=== PATIENT | female | born 1960 | race Caucasian/White ===

== ENCOUNTER 2016-06-26 10:17 | Day surgery (SDC) | payer BC ==
[~2016-06-26] VITALS: Ht 157.5 cm; Wt 74.5 kg
[2016-06-26 10:52] VITALS: Ht 157.5 cm; Wt 74.5 kg
[2016-06-26] MEDS ORDERED: AMLO-147 PO (11:11)
[2016-06-26] MEDS ORDERED: CITA-104 PO (11:11)
[2016-06-26] MEDS ORDERED: SIMV20TA97 PO (11:11)
[2016-06-26] MEDS ORDERED: CYCL-319 PO (11:11)
[2016-06-26] MEDS ORDERED: NAPR500T8 PO (11:11)
[2016-06-26] MEDS ORDERED: SUMA100T4 PO (11:11)
[2016-06-26] MEDS ORDERED: PANT40TA4 PO (11:11)
[2016-06-26] MEDS ORDERED: IBUP400T22 PO (11:11)
[2016-06-26] MEDS ORDERED: MIRT15TA5 PO (11:11)
[2016-06-26] MEDS ORDERED: PROPOFOL 20 ML ONE ×2 (11:22→12:12)
[2016-06-26] MEDS ORDERED: MIDAZOLAM 1 MG/ML 2 ML INJ ONE (11:22)
[2016-06-26] MEDS ORDERED: LIDOCAINE 2% (SDV) 5 ML INJ ONE (11:22)
[2016-06-26 12:20] VITALS: BP 119/80; PULSE 77; RESP 16
[2016-06-26 12:25] VITALS: BP 120/77; PULSE 78; RESP 17
[2016-06-26 12:30] VITALS: BP 116/68; PULSE 80; RESP 17
[2016-06-26 12:35] VITALS: BP 118/79; PULSE 78; RESP 17
[2016-06-26 12:40] VITALS: BP 122/81; PULSE 77; RESP 18
--- NOTE | 2016-06-26 18:56 | GILP ---
DATE OF PROCEDURE: NAME OF PROCEDURES: 1. Esophagogastroduodenoscopy and biopsy. 2. Colonoscopy and biopsy. SURGEON: Lexy Israel MD PREOPERATIVE DIAGNOSES: 1. Abdominal pain. 2. Chronic heartburn. 3. Screening colonoscopy. POSTOPERATIVE DIAGNOSES: 1. Gastroesophageal reflux disease. 2. Gastritis. 3. Gastric mucosal biopsies were taken for Helicobacter pylori test. 4. Colonoscopy all the way to the cecum. 5. Small sigmoid colon polyp was removed. 6. Diverticulosis of the colon. 7. Internal hemorrhoids. INDICATION FOR THE PROCEDURE: Ms. Sada Zhang is a 56-year-old female patient who had upper a bdominal pain and chronic heartburn, not responding to therapy. She also needed screening colonosco py. The procedures and possible complications were well explained to the patient. She understood and co nsented to the procedures. DESCRIPTION OF PROCEDURE: Under the influence of anesthesia, the gastroscope was carefully introduc ed into the esophagus and, under direct vision, it was advanced to the stomach and through the pylor us into the duodenal bulb and descending duodenum. FINDINGS: ESOPHAGUS: The patient had gastroesophageal reflux disease. STOMACH: She had gastritis. Gastric mucosal biopsies were taken for H. pylori test. DUODENUM: Normal. The colonoscope was carefully introduced in the rectum and, under direct vision, it was advanced all the way to the cecum. FINDINGS: The patient had a small sigmoid colon polyp and it was removed using the biopsy forceps. She was noted to have diverticulosis of the colon and internal hemorrhoids. She tolerated the procedures very well and there was no complication from the procedures. At the en d of the procedures, she was awake with stable vital signs and she was discharged home to the care o f her family. IMPRESSION: 1. Gastroesophageal reflux disease. 2. Gastritis. 3. Gastric mucosal biopsies were taken for Helicobacter pylori test. 4. Colonoscopy all the way to the cecum. 5. Small sigmoid colon polyp was removed using the biopsy forceps. 6. Diverticulosis of the colon. 7. Internal hemorrhoids. PLAN: 1. Continue pantoprazole. 2. Await histopathology reports. 3. Next screening colonoscopy in 10 years. Dictated By: LEXY SANTOS/DAYANA Conf#: [id number] DID#: [id number] CC: LEXY ISRAEL MD;*EndCC*
== END 2016-06-26 13:02 | disposition home or self-care (01) ==
LOC: GIL 10:17
PROVIDERS: ATTEND Internal Medicine Gastroenterology
DX: Z12.11 Encounter for screening for malignant neoplasm of colon (principal); D12.5 Benign neoplasm of sigmoid colon; B96.81 Helicobacter pylori [H. pylori] as the cause of diseases classified elsewhere; K21.9 Gastro-esophageal reflux disease without esophagitis; K57.90 Diverticulosis of intestine, part unspecified, without perforation or abscess without bleeding; K64.8 Other hemorrhoids; I10 Essential (primary) hypertension; E78.5 Hyperlipidemia, unspecified; F41.9 Anxiety disorder, unspecified
CPT/HCPCS: 43239; 45380; 87081; 88305; J2250; Z7610

== ENCOUNTER 2016-10-02 13:39 | Emergency (ER) | payer BC ==
[~2016-10-02] VITALS: Ht 165.1 cm; Wt 72.7 kg
[~2016-10-02 13:39] MED LIST: AMLO-147 PO; CITA-104 PO; CYCL-319 PO; IBUP400T22 PO; MIRT15TA5 PO; NAPR500T8 PO; PANT40TA4 PO; SIMV20TA PO; SUMA100T4 PO
[2016-10-02 13:44] VITALS: Ht 165.1 cm; Wt 72.7 kg
--- NOTE | 2016-10-02 13:45 | ERA ---
ER Documentation Chief Complaint Date/Time DATE: 10/02/16 TIME: 13:45 Chief Complaint DDizzinesszziness HPI The patient is a 56-year-old female, presenting to the ER because of dizziness while she was shopping around 12:30 PM. She felt better at this time, she denies similar symptoms previously. She feels as if the room is spinning. She denies fever, chills, syncope, near syncope, neck pain, chest pain, abdominal pain, vomiting, dysuria, diarrhea. She fell why getting out of the shower 4 days ago and hit her head on the ground. She does not smoke nor drink Past medical history: Dyslipidemia, migraine, hypertension Past surgical history: None ROS All systems reviewed and are negative except as per history of present illness. Medications Home Meds Active Scripts Meclizine Hcl* (Meclizine Hcl*) 25 Mg Tablet, 25 MG PO TID, #14 TAB Prov:MAX MEDEIROS MD 10/02/16 Reported Medications Sumatriptan Succinate* (Sumatriptan Succinate*) 100 Mg Tablet, 100 MG PO BID Y for MIGRAINE HEADACHE, TAB May repeat after 2 hours if needed; MAX 200 mg/24 hours 06/26/16 Cyclobenzaprine Hcl* (Cyclobenzaprine Hcl*) 10 Mg Tablet, 10 MG PO Q8 Y for PAIN , #60 TAB 06/26/16 Naproxen* (Naproxen EC*) 500 Mg Tablet.dr, 500 MG PO BID Y for PAIN, TAB 06/26/16 Citalopram Hydrobromide* (Citalopram Hydrobromide*) 40 Mg Tablet, 40 MG PO DAILY , #30 TAB 06/26/16 Mirtazapine* (Mirtazapine*) 15 Mg Tablet, 15 MG PO HS, TAB 06/26/16 Pantoprazole* (Pantoprazole*) 40 Mg Tablet.dr, 40 MG PO AC BREAKFAST, TAB 06/26/16 Amlodipine Besylate* (Amlodipine Besylate*) 10 Mg Tablet, 10 MG PO DAILY, #30 TAB 06/26/16 Ibuprofen* (Ibuprofen*) 400 Mg Tablet, 400 MG PO Q6H Y for PAIN, TAB 06/26/16 Discontinued Reported Medications Simvastatin* (Zocor*) 20 Mg Tablet, 20 MG PO QHS, #30 TAB 06/26/16 Allergies Allergies: Coded Allergies: No Known Allergy (Unverified , 06/26/16) PMhx/Soc History of Surgery: Yes (appendectomy) Anesthesia Reaction: No Hx Neurological Disorder: No Hx Respiratory Disorders: No Hx Cardiac Disorders: Yes (HTN) Hx Psychiatric Problems: Yes (anxiety ) Hx Miscellaneous Medical Probl: No Hx Alcohol Use: Yes (once/month) Hx Substance Use: No Hx Tobacco Use: No Physical Exam Vitals Vital Signs Date Time Temp Pulse Resp B/P Pulse Ox O2 Delivery O2 Flow Rate FiO2 10/02/16 13:44 98.1 104 18 160/86 98 Physical Exam Const: No acute distress. Head: Atraumatic. Eyes: Normal Conjunctiva. Minimal left periorbital edema, no nystagmus ENT: Normal External Ears, Nose and Mouth. Neck: Full range of motion. No meningismus. Resp: Clear to auscultation bilaterally. Cardio: Regular rate and rhythm, no murmurs. Abd: Soft, non distended, normal bowel sounds, non tender. Skin: No petechiae or rashes. Back: No midline or flank tenderness. Ext: No cyanosis, or edema. Neur: Awake and alert. No focal deficit Psych: Normal Mood and Affect. Result Diagram: 10/02/16 1400 10/02/16 1400 Results 24 hrs Laboratory Tests Test 10/02/16 13:59 10/02/16 14:00 Bedside Glucose 93mg/dL White Blood Count 5.110^3/ul Red Blood Count 4.3710^6/ul Hemoglobin 13.6g/dl Hematocrit 40.3% Mean Corpuscular Volume 92.2fl Mean Corpuscular Hemoglobin 31.1pg Mean Corpuscular Hemoglobin Concent 33.7g/dl Red Cell Distribution Width 11.9% Platelet Count 82636^3/UL Mean Platelet Volume 9.5fl Neutrophils % 51.0% Lymphocytes % 41.9% Monocytes % 6.1% Eosinophils % 0.4% Basophils % 0.4% Nucleated Red Blood Cells % 0.0/100WBC Neutrophils # 2.610^3/ul Lymphocytes # 2.110^3/ul Monocytes # 0.310^3/ul Eosinophils # 0.010^3/ul Basophils # 0.010^3/ul Nucleated Red Blood Cells # 0.010^3/ul Prothrombin Time 13.1Sec Prothrombin Time Ratio 1.0 INR International Normalized Ratio 0.99 Activated Partial Thromboplast Time 26.2Sec Sodium Level 139mmol/L Potassium Level 3.9mmol/L Chloride Level 101mmol/L Carbon Dioxide Level 26mmol/L Anion Gap 16 Blood Urea Nitrogen 14mg/dl Creatinine 0.53mg/dl Glucose Level 106mg/dl Calcium Level 9.1mg/dl Troponin I < 0.012ng/ml Current Medications Medications (Trade) Dose Ordered Sig/Mala Route PRN Reason Start Time Stop Time Status Last Admin Dose Admin Meclizine HCl (Antivert) 25 mg ONCE ONCE PO 10/02/16 16:00 10/02/16 16:01 DC 10/02/16 16:24 Procedures/[place] [id number] Radiology Main Line: [phone] DIAGNOSTIC IMAGING REPORT Patient: LIAT MCCURDY : 1960 Age: 56 Sex: F MR #: [id number] DOS: 10/02/16 1345 Ordering MD: MAX MEDEIROS MD Location: E/R Room/Bed: PROCEDURE: CT Head without. CLINICAL INDICATION: Syncope. TECHNIQUE: The study was performed utilizing a multi-slice, multidetector CT scanner. Direct spiral 1 mm axial sections were obtained through the head without the use of intravenous contrast material. 1 or more of the following dose reduction techniques were utilized: Automated exposure control, adjustment of the mA and/or kV according to patient's size, iterative reconstruction technique. Coronal and sagittal reformations were obtained. The images were reviewed on a PACS workstation. RADIATION DOSE: CTDIvol: 44.7 mGy DLP: 630.2 mGy-cm COMPARISON: No prior studies are available for comparison. FINDINGS: There is no intracranial hemorrhage, extra-axial fluid collection, mass lesion, midline shift or hydrocephalus. There is minimal ventricular asymmetry, with the right lateral ventricle being slightly larger than the left. The ventricles , sulci and cisterns are within normal limits. The white matter is unremarkable. The menendez-white matter differentiation is preserved. The basal cisterns are patent. The midline structures are intact. The orbits, calvarium and extracranial soft tissues are normal in appearance. The visualized paranasal sinuses, mastoid air cells and middle ear cavities are normally aerated. IMPRESSION: 1. No acute intracranial abnormality. No intracranial hemorrhage, extra-axial fluid collection, mass lesion or hydrocephalous. RPTAT: HGAS .Nasim Nelson MD, Date Time Electronically viewed and signed by .Nasim Nelson MD, MD on 10/02/2016 14: 20 .S/ CC: MAX MEDEIROS MD [place] [id number] Radiology Main Line: [phone] DIAGNOSTIC IMAGING REPORT Patient: LIAT MCCURDY : 1960 Age: 56 Sex: F MR #: [id number] DOS: 10/02/16 [facility]2 Ordering MD: MAX MEDEIROS MD Location: E/R Room/Bed: PROCEDURE: CT face without contrast CLINICAL INDICATION: Syncope, left red eye, trauma TECHNIQUE: CT of the face without contrast was performed on a multidetector CT scanner, with multiplanar reformats. One or more of the following dose reduction techniques were used: Automated exposure control, adjustment in mA and / or kV according to patient size, use of iterative reconstructive technique. CTDIvol = 30 mGy and DLP = 607 mGy-cm. COMPARISON: None available. FINDINGS: Mild left periorbital soft tissue swelling is seen inferiorly. No fracture or injury of the orbital structures is identified. The orbital structures are unremarkable bilaterally. There is no retrobulbar hemorrhage. Facial bones and temporomandibular joints are intact. Paranasal sinuses appear clear. Noted is rightward nasal septal deviation. No soft tissue gas or radiopaque foreign body is seen. IMPRESSION: Mild left periorbital soft tissue swelling, without fracture or orbital injury identified. RPTAT: VV .Johnny Scott MD, MD Date Time Electronically viewed and signed by .Johnny Scott MD, on 10/02/2016 14:33 .O/ CC: MAX MEDEIROS MD EKG: Read by emergency physician Rate/Rhythm: Normal Sinus Rhythm 75 beats/min QRS, ST, T-waves: No ST elevation, no T inversion, nonspecific ST abnormality Impression: Abnormal EKG MEDICAL MAKING DECISION: The patient is a 56-year-old female, presenting to the ER because of acute dizziness of unclear etiology, acute facial contusion. She was treated with Antivert p.o. in the ER for dizziness with good response The differential diagnoses considered include but are not limited to central causes such as cerebellar infarct, cerebellar hemorrhage, cerebellar tumor, acoustic neuroma, peripheral causes such as benign positional vertigo, labyrinthitis, medication, Meniere's disease. Departure Diagnosis: Primary Impression: Dizziness Additional Impression: Facial contusion Condition: Good Comments She was discharged with Antivert I discussed the findings with the patient. I advised the patient to follow-up with the primary physician in about 1-2 days, sooner if needed and return if any concern. MAX MEDEIROS MD Oct 02, 2016 13:45
[2016-10-02 14:07] LABS: ADD SCAN DIFF NO
[2016-10-02 14:09] LABS: BASOPHILS % 0.4 % (0.0-2.0); EOSINOPHILS % 0.4 % (0.0-7.0); HEMATOCRIT 40.3 % (37.0-47.0); HEMOGLOBIN 13.6 g/dl (12.0-16.0); LYMPHOCYTES # 2.1 10^3/ul (0.8-2.9); LYMPHOCYTES % 41.9 % (15.0-51.0); MEAN CORPUSCULAR HEMOGLOBIN 31.1 pg (29.0-33.0); MEAN CORPUSCULAR HGB CONC 33.7 g/dl (32.0-37.0); MEAN CORPUSCULAR VOLUME 92.2 fl (82.0-101.0); MEAN PLATELET VOLUME 9.5 fl (7.4-10.4); MONOCYTE # 0.3 10^3/ul (0.3-0.9); MONOCYTES % 6.1 % (0.0-11.0); NEUTROPHIL # 2.6 10^3/ul (1.6-7.5); PLATELET COUNT 238 10^3/UL (140-415); RED BLOOD COUNT 4.37 10^6/ul (4.20-5.40); RED CELL DISTRIBUTION WIDTH 11.9 % (11.5-14.5); WHITE BLOOD COUNT 5.1 10^3/ul (4.8-10.8)
[2016-10-02 14:20] LABS: INR 0.99; PARTIAL THROMBOPLASTIN TIME 26.2 Sec (25.0-35.0); PROTIME 13.1 Sec (12.2-14.2)
--- NOTE | 2016-10-02 14:21 | RADRPT ---
PROCEDURE: CT Head without. CLINICAL INDICATION: Syncope. TECHNIQUE: The study was performed utilizing a multi-slice, multidetector CT scanner. Direct spira l 1 mm axial sections were obtained through the head without the use of intravenous contrast materia l. 1 or more of the following dose reduction techniques were utilized: Automated exposure control, adjustment of the mA and/or kV according to patient's size, iterative reconstruction technique. Co sera and sagittal reformations were obtained. The images were reviewed on a PACS workstation. RADIATION DOSE: CTDIvol: 44.7 mGyDLP: 630.2 mGy-cm COMPARISON: No prior studies are available for comparison. FINDINGS: There is no intracranial hemorrhage, extra-axial fluid collection, mass lesion, midline shift or hyd rocephalus. There is minimal ventricular asymmetry, with the right lateral ventricle being slightly larger than the left. The ventricles, sulci and cisterns are within normal limits. The white alberto er is unremarkable. The menendez-white matter differentiation is preserved. The basal cisterns are pat ent. The midline structures are intact. The orbits, calvarium and extracranial soft tissues are no rmal in appearance. The visualized paranasal sinuses, mastoid air cells and middle ear cavities are normally aerated. IMPRESSION: 1. No acute intracranial abnormality. No intracranial hemorrhage, extra-axial fluid collection, ma ss lesion or hydrocephalous. RPTAT: HGAS .Nasim Nelson MD, MD Date Time Electronically viewed and signed by .Nasim Nelson MD, MD on 10/02/2016 14:20 .S/
[2016-10-02 14:23] LABS: CHLORIDE 101 mmol/L (97-110)
[2016-10-02 14:24] LABS: POTASSIUM 3.9 mmol/L (3.5-5.1); SODIUM 139 mmol/L (135-144)
[2016-10-02 14:26] LABS: CREATININE 0.53 mg/dl (0.44-1.00)
[2016-10-02 14:27] LABS: ANION GAP 16 (8-16); BLOOD UREA NITROGEN 14 mg/dl (7-20); CALCIUM 9.1 mg/dl (8.4-10.2); CARBON DIOXIDE 26 mmol/L (21-31); GLUCOSE 106 mg/dl (70-220)
--- NOTE | 2016-10-02 14:34 | RADRPT ---
PROCEDURE: CT face without contrast CLINICAL INDICATION: Syncope, left red eye, trauma TECHNIQUE: CT of the face without contrast was performed on a multidetector CT scanner, with multip lanar reformats. One or more of the following dose reduction techniques were used: Automated exposu re control, adjustment in mA and / or kV according to patient size, use of iterative reconstructive technique. CTDIvol = 30 mGy and DLP = 607 mGy-cm. COMPARISON: None available. FINDINGS: Mild left periorbital soft tissue swelling is seen inferiorly. No fracture or injury of the orbital structures is identified. The orbital structures are unremarkable bilaterally. There is no retrob ulbar hemorrhage. Facial bones and temporomandibular joints are intact. Paranasal sinuses appear c lear. Noted is rightward nasal septal deviation. No soft tissue gas or radiopaque foreign body is seen. IMPRESSION: Mild left periorbital soft tissue swelling, without fracture or orbital injury identified. RPTAT: VV .Johnny Scott MD, MD Date Time Electronically viewed and signed by .Johnny Scott MD, on 10/02/2016 14:33 .O/
[2016-10-02 14:47] LABS: TROPONIN-I < 0.012 ng/ml (0.00-0.12)
[2016-10-02] MEDS ORDERED: MECL-77 PO (15:35)
[2016-10-02] MEDS ORDERED: MECLIZINE 12.5 MG TAB PO ONE (16:00)
[2016-10-02 18:40] VITALS: BP 153/78; PULSE 80; RESP 18; TEMP 98.1
== END 2016-10-02 16:30 | disposition home or self-care (01) ==
LOC: E/R 13:39
DX: R42 Dizziness and giddiness (principal); S00.83XA Contusion of other part of head, initial encounter; I10 Essential (primary) hypertension; X58.XXXA Exposure to other specified factors, initial encounter; Y92.9 Unspecified place or not applicable
CPT/HCPCS: 36415; 70450; 70486; 80048; 82962; 84484; 85025; 85610; 85730; 93005; Z7502; Z7610

== ENCOUNTER 2017-09-26 19:19 | Emergency (ER) | END 2017-09-26 20:07 | disposition home or self-care (01) ==

== ENCOUNTER 2017-09-28 09:57 | Emergency (ER) | END 2017-09-28 12:53 | disposition home or self-care (01) ==